=== PATIENT | female | born 1965 | race Caucasian/White ===

== ENCOUNTER 2018-11-28 17:17 | Emergency (ER) | payer OTHER ==
[2018-11-28 17:30] VITALS: TEMP 98.4
[2018-11-28 19:02] VITALS: RESP 18
--- NOTE | 2018-11-28 19:10 | CT ---
EXAMINATION: CT brain wo con DATE AND TIME: 11/28/2018 6:33 PM CLINICAL INDICATION: PHH; facial numbness left sided x 2 weeks, [facility] TECHNIQUE: Standard departmental protocol.; 1066.4; COMPARISON: None. FINDINGS: The calvarium is intact. There is no intracranial hemorrhage. There is no intracranial mass or mass effect. No definite new intra-axial or extra-axial attenuation defect. The paranasal sinuses, middle ear cavities, and mastoid sinus air cells are clear. The orbits are unremarkable. IMPRESSION: NO ACUTE PROCESS.
[2018-11-28] MEDS ORDERED: hydrALAZINE HCL 20 MG/ML 1 ML VIAL IVP STA (19:12)
[2018-11-28] MEDS ORDERED: ATENOLOL 25 MG TAB PO STA (19:39)
--- NOTE | 2018-11-28 19:39 | ED ---
Recheck HPI - General Chief Complaint: Recheck/Abnormal Lab/Rx Stated Complaint: High BP Time Seen by Provider: 11/28/18 17:47 Source: patient, family Mode of arrival: ambulatory Limitations: no limitations - History of Present Illness Initial Comments: 53-year-old female presenting today for chief complaint of sent by primary care provider. Patient states that she has been off her blood pressure medications for the past month, she states she ran out of prescription and was not able to get more medication until she saw her primary care provider. She states upon arrival to her primary care office her blood pressure was elevated. Patient states she was there because she has been having sinus pressure left greater than right and some mild facial swelling she states that the pain radiates to her teeth. She states she was positive she had a sinus infection. Patient states at times she has tingling near her left side of her lip. She states this complaint prompted her primary care provider to send her to the emergency department for CT imaging study to rule out stroke due to the complaint of tingling of the left side of the lip/face. Patient states she can feel her face to palpation. She denies any dizziness, she denies sudden onset of headache. Patient states she has had upper respiratory symptoms for the past 3-4 weeks. She states she is congested. Patient denies fever chills night sweats. Patient denies any difficulty swallowing breathing chest pain dyspnea leg swelling dyspnea upon exertion nausea vomiting muscle weakness sensation deficits of the upper or lower extremities or speech changes. Remaining review of systems negative upon arrival patient appears wells no signs of acute distress. - Related Data Home Medications Medication Instructions Recorded Confirmed Atenolol [Tenormin] 25 mg PO DAILY 11/28/18 11/28/18 Guaifen/Phenyleph/Acetaminophn 1 tab PO Q6H PRN 11/28/18 11/28/18 [Tylenol Sinus Severe Caplet] Ibuprofen [Motrin Ib] 200 mg PO Q4H PRN 11/28/18 11/28/18 Multivitamins, Thera [Multivitamin 1 tab PO HS 11/28/18 11/28/18 (formulary)] Oxybutynin Chloride [Ditropan XL] 5 mg PO DAILY 11/28/18 11/28/18 Vitamin B Complex 1 cap PO DAILY 11/28/18 11/28/18 Previous Rx's Medication Instructions Recorded Amoxic-Pot Clav 875-125Mg 1 tab PO Q12HR 5 Days #10 tablet 11/28/18 [Augmentin 875-125] Atenolol 25 mg PO DAILY 30 Days #30 tablet 11/28/18 Allergies Allergy/AdvReac Type Severity Reaction Status Date / Time No Known Allergies Allergy Verified 11/28/18 19:11 Review of Systems ROS Statement: Those systems with pertinent positive or pertinent negative responses have been documented in the HPI. ROS Other: All systems not noted in ROS Statement are negative. Past Medical History Past Medical History: Hypertension History of Any Multi-Drug Resistant Organisms: None Reported Past Surgical History: No Surgical Hx Reported Past Psychological History: No Psychological Hx Reported Smoking Status: Former smoker Past Alcohol Use History: None Reported Past Drug Use History: None Reported General Exam - General Exam Comments Initial Comments: General: The patient is awake and alert, in no distress, and does not appear acutely ill. Eye: +3 mm pupils are equal, round and reactive to light, extra-ocular movements are intact. No nystagmus. There is normal conjunctiva bilaterally. No signs of icterus. No photophobia Ears, nose, mouth and throat: There are moist mucous membranes and no oral lesions. Oropharynx was not erythematous there is no tonsillar enlargement exudates or lesions. Uvula midline. Tympanic membranes are not erythematous or is no effusions bulging or retraction. No tenderness to palpation of the mastoid. No anterior cervical lymphadenopathy. Rhinorrhea, clear and bilateral nares. No tripoding, no drooling. Mild left sided facial swelling. Tenderness maxillary sinuses. Neck: The neck is supple, there is no tenderness or JVD. No nuchal rigidity Cardiovascular: There is a regular rate and rhythm. No murmur, rub or gallop is appreciated. Respiratory: Lungs are clear to auscultation, respirations are non-labored, breath sounds are equal. No wheezes, stridor, rales, or rhonchi. No retractions or abdominal breathing. Gastrointestinal: Soft, non-distended, non-tender abdomen without masses or organomegaly noted. There is no rebound or guarding present. Bowel sounds are unremarkable. Musculoskeletal: Normal ROM, no tenderness. Strength 5/5. Sensation intact. Radial pulses equal bilaterally 2+. Neurological: A&O x 3. CN II-XII intact, memory intact to immediately, intermediate and fci recall. Able to follow simple verbal. Able to name a common object. High quality, labial (pa) and lingual (la) speech. Low quality posterior pharynx/larynx (ga) voice sounds. Able to express general knowledge. No hemineglect or inattention noted. Finger agnosia (-) and spatially oriented. Light touch and temperature sensation present over the face, chest, abdomen, back, UE bilaterally, and LE bilaterally. Able to localize point during point localization b/l and extinction. No visible bulk atrophy, hypertrophy, fasciculations, or myoclonus of the UE or LE b/l. Full PROM in UE and LE b/l. Bilateral muscle strength 5/5 for the following muscles: deltoid, biceps, triceps, brachioradialis, wrist extensors/flexor, hip flexor, hip abductors/adductors, hamstrings, quadriceps, feet dorsiflexors/plantar flexors. Finger to nose, finger to the examiners finger, and heel to marin coordinated a nd accurate b/l. Coordinated and even demonstration of hand flip, finger to thumb, and toe tap b/l. Gait is coordinated and even in stride with tandem walk.(-) pronator drift. No nuchal rigidity. Skin: Skin is warm and dry and no rashes or lesions are noted. No extremity edema Psychiatric: Cooperative Limitations: no limitations Course Vital Signs 11/28/18 11/28/18 11/28/18 17:25 18:02 19:01 Temperature 98.4 F Pulse Rate 84 89 Respiratory 16 18 Rate Blood Pressure 170/89 191/98 188/96 O2 Sat by Pulse 98 99 Oximetry Medical Decision Making - Medical Decision Making Well-appearing 53-year-old female presenting today for chief complaint of sinus pressure of her tooth pain and mild left sided facial swelling and tingling of the left side of the lip. Patient states she has had upper respiratory symptoms for a month. Patient presented to primary care provider for evaluation of sinusitis. Patient was sent for elevated blood pressure and headache evaluation recommended CT. CT of revealed no acute intracranial process. Patient no focal neurological deficits. There is no numbness or loss of sensation of the left side of face. Patient appeared well patient requesting discharge. Patient did not want IV blood pressure medications. Patient is not what laboratory studies. Patient had no additional complaints. Patient provided prescription for antibiotics. She was provided prescription for previous pressure medications that she has been out of for the past month atenolol 25 mg daily. Patient provided initial dose here in the emergency department. Patient did not want to wait for improvement of blood pressure patient is discharged instruction to follow up outpatient with primary care provider. Prescription was sent over to patient's pharmacy. I did discuss the case with attending provider Dr. Fairbanks who is agreeable with patient plan of care as well as discharge. Pt discharged appearing well. Disposition Clinical Impression: Sinus pressure Disposition: HOME SELF-CARE Condition: Good Instructions (If sedation given, give patient instructions): Sinusitis (ED) Additional Instructions: Please use medication as discussed. Please follow-up with family doctor in the next 2 days. Please return to emergency room if the symptoms increase or worsen or for any other concerns. Prescriptions: Atenolol 25 mg PO DAILY 30 Days #30 tablet Amoxic-Pot Clav 875-125Mg [Augmentin 875-125] 1 tab PO Q12HR 5 Days #10 tablet Is patient prescribed a controlled substance at d/c from ED?: No Referrals: Farida Roth MD [Primary Care Provider] - 1-2 days Time of Disposition: 19:40
[2018-11-28 20:09] VITALS: BP 180/100; PULSE 80
== END 2018-11-28 20:07 | disposition home or self-care (01) ==
LOC: EC 17:17
DX: J34.89 Other specified disorders of nose and nasal sinuses (principal); I10 Essential (primary) hypertension; Z79.899 Other long term (current) drug therapy; Z87.891 Personal history of nicotine dependence
CPT/HCPCS: 70450; 99283